=== PATIENT | female | born 1965 | race Asian ===

== ENCOUNTER 2019-01-12 10:48 | Day surgery (SDC) | payer OTHER ==
[2019-01-12 12:00] LABS: ADD MAN DIFF? NO
[2019-01-12] MEDS ORDERED: LIDOCAINE 1% (MDV) 20 ML INJ (12:06)
[2019-01-12] MEDS ORDERED: IODIXANOL LOCM 100 ML BTL (12:06)
[2019-01-12] MEDS ORDERED: HEPARIN 1000 UNITS/NS (A-LINE) 1,000 ML (12:06)
[2019-01-12 12:07] LABS: WHITE BLOOD COUNT 5.7 10^3/ul (4.8-10.8)
[2019-01-12 12:07] LABS: BASOPHILS % 0.7 % (0.0-2.0); EOSINOPHILS # 0.3 10^3/ul (0.0-0.5); EOSINOPHILS % 5.4 % (0.0-7.0); HEMOGLOBIN 11.7 g/dl (12.0-16.0); LYMPHOCYTES # 1.4 10^3/ul (0.8-2.9); LYMPHOCYTES % 23.7 % (15.0-51.0); MEAN CORPUSCULAR HEMOGLOBIN 30.9 pg (29.0-33.0); MEAN CORPUSCULAR HGB CONC 33.4 g/dl (32.0-37.0); MEAN CORPUSCULAR VOLUME 92.3 fl (82.0-101.0); MONOCYTE # 0.7 10^3/ul (0.3-0.9); MONOCYTES % 11.3 % (0.0-11.0); NEUTROPHIL # 3.3 10^3/ul (1.6-7.5); NEUTROPHILS % 57.9 % (39.0-77.0); PLATELET COUNT 125 10^3/UL (140-415); RED BLOOD COUNT 3.79 10^6/ul (4.20-5.40); RED CELL DISTRIBUTION WIDTH 15.5 % (11.5-14.5)
[2019-01-12 12:25] LABS: ALANINE AMINOTRANSFERASE 17 IU/L (13-69); ALKALINE PHOSPHATASE 65 IU/L (42-121); ANION GAP 11 (5-13); ASPARTATE AMINO TRANSFERASE 20 IU/L (15-46); BILIRUBIN,INDIRECT 0.5 mg/dl (0-1.1); BILIRUBIN,TOTAL 0.5 mg/dl (0.2-1.3); CALCIUM 8.6 mg/dl (8.4-10.2); CARBON DIOXIDE 21 mmol/L (21-31); CHLORIDE 110 mmol/L (97-110); Estimated GFR 6 mL/min (>60); GLUCOSE 79 mg/dl (70-220); POTASSIUM 4.7 mmol/L (3.5-5.1); SODIUM 142 mmol/L (135-144)
[2019-01-12 12:27] LABS: BLOOD UREA NITROGEN 29 mg/dl (7-20)
[2019-01-12 12:55] LABS: INR 0.99; PROTIME 13.2 Sec (11.9-14.9)
[2019-01-12 12:56] LABS: PARTIAL THROMBOPLASTIN TIME 27.2 Sec (23.0-35.0)
[2019-01-12] MEDS ORDERED: FENTAnyl 50 MCG/ML VIAL (12:58)
[2019-01-12] MEDS ORDERED: MIDAZOLAM 1 MG/ML 2 ML INJ (13:01)
[2019-01-12] MEDS ORDERED: ACETAMINOPHEN 325 MG TAB PO (13:30)
== END 2019-01-12 16:07 | disposition home or self-care (01) ==
LOC: SDS 10:48
DX: I12.0 Hypertensive chronic kidney disease with stage 5 chronic kidney disease or end stage renal disease (principal); N18.6 End stage renal disease
CPT/HCPCS: 36902; 80053; 85025; 85610; 85730